=== PATIENT | male | born 1990 | race Caucasian/White ===

== ENCOUNTER 2017-08-10 14:21 | Emergency (ER) | payer BC ==
[2017-08-10 15:33] VITALS: BP 134/86
[2017-08-10] MEDS ORDERED: Lidocaine 1% with EPINEPHrine 1:100,000 20 ML MDV INJECT ONE (15:38)
--- NOTE | 2017-08-10 15:41 | EDM.PDOC ---
ED HPI GENERAL MEDICAL PROBLEM - General Chief Complaint: Laceration Stated Complaint: HIT THE HEAD [id number] Time Seen by Provider: 08/10/17 15:38 Source of Information: Reports: Patient History Limitations: Reports: No Limitations - History of Present Illness INITIAL COMMENTS - FREE TEXT/NARRATIVE: 26 yo male presents with scalp laceration s/p a stud( wall post) falling on his head. deneis LOC. c/o bleeding at time of injury however, bleeding controlled currently. No gauze or dressing present. Onset: Today Duration: Constant Location: Reports: Head Quality: Reports: Ache Severity: Mild Improves with: Reports: None Worsens with: Reports: None Context: Reports: Activity Associated Symptoms: Reports: No Other Symptoms Head Pain Score (Numeric/FACES): 5 - Related Data Allergies Allergy/AdvReac Type Severity Reaction Status Date / Time amoxicillin trihydrate Allergy Rash Verified 08/10/17 15:30 [From Augmentin] cefaclor [From Ceclor] Allergy Diarrhea Verified 08/10/17 15:30 cephalexin Allergy Hives Verified 08/10/17 15:30 codeine Allergy Cannot Verified 08/10/17 15:30 Remember potassium clavulanate Allergy Cannot Verified 08/10/17 15:30 [From Augmentin] Remember Home Meds: Home Meds Albuterol [Ventolin HFA] 2 inh INH ASDIRECTED PRN 08/10/17 [History] Past Medical History - Past Health History Medical/Surgical History: Denies Medical/Surgical History Respiratory History: Reports: Asthma - Infectious Disease History Infectious Disease History: Reports: Chicken Pox - Past Surgical History HEENT Surgical History: Reports: Myringotomy w Tube(s) Social & Family History - Family History Family Medical History: Noncontributory - Tobacco Use Smoking Status *Q: Never Smoker Second Hand Smoke Exposure: No - Caffeine Use Caffeine Use: Reports: Soda - Alcohol Use Days Per Week of Alcohol Use: 1 Number of Drinks Per Day: 3 Total Drinks Per Week: 3 - Recreational Drug Use Recreational Drug Use: No ED ROS GENERAL - Review of Systems Review Of Systems: ROS reveals no pertinent complaints other than HPI. ED EXAM, SKIN/RASH Exam: See Below Exam Limited By: No Limitations General Appearance: Alert, WD/WN, No Apparent Distress Eye Exam: Bilateral Eye: Normal Inspection, PERRL Head: Normocephalic Neck: Normal Inspection, Supple, Non-Tender, Full Range of Motion Respiratory/Chest: No Respiratory Distress, Lungs Clear, Normal Breath Sounds, No Accessory Muscle Use, Chest Non-Tender Cardiovascular: Normal Peripheral Pulses, Regular Rate, Rhythm, No Edema, No Gallop, No JVD, No Murmur, No Rub Neurological: Alert, Oriented, CN II-XII Intact, Normal Cognition, Normal Gait, No Motor/Sensory Deficits Skin: Warm, Dry, Normal Color, No Rash, Wound/Incision (small 1 cm laceration to anterior scalp) Location, Skin: Head ED SKIN PROCEDURES - Laceration/Wound Repair [place] Head Lac/Wound length In cm: 0.5 Appearance: Superficial Anesthetic Type: Local Local Anesthesia - Lidocaine (Xylocaine): 1% with EPI Local Anesthetic Volume: 2cc Skin Prep: Chlorhexidine (Hibiciens) Saline Irrigation (cc's): 30 Closed with: Dermabond Drain Placement: No Sterile Dressing Applied: None Tetanus Status Addressed: Yes Complications: No Course - Vital Signs Last Recorded V/S: Last Vital Signs Temp 98.6 F 08/10/17 15:31 Pulse 107 H 08/10/17 15:31 Resp 18 08/10/17 15:31 BP 134/86 08/10/17 15:31 Pulse Ox 98 08/10/17 15:31 - Orders/Labs/Meds Meds: Medications Discontinued Medications Generic Name Dose Route Start Last Admin Trade Name Lupis PRN Reason Stop Dose Admin Lidocaine/Epinephrine 20 ml 08/10/17 15:38 08/10/17 15:46 Xylocaine 1% With Epinephrine 1:100,000 INJECT 08/10/17 15:39 20 ml ONETIME ONE Administration Departure - Departure Time of Disposition: 16:48 Disposition: Home, Self-Care 01 Condition: Good Clinical Impression: Scalp laceration Qualifiers: Encounter type: initial encounter Qualified Code(s): S01.01XA - Laceration without foreign body of scalp, initial encounter - Discharge Information Instructions: Laceration Care, Adult, [id number], Stitches, [place], or Adhesive Wound Closure, [id number]-Cnei Forms: ED Department Discharge Additional Instructions: Keep wound clean and dry. You do not need to have the dermabond removed, it will dissolve. Monitor for the next 24 hours for any changes in consciousness or symptoms. Return for any worsening symptoms.
== END 2017-08-10 16:59 | disposition home or self-care (01) ==
LOC: DL.ED 14:21
DX: S01.01XA Laceration without foreign body of scalp, initial encounter (principal); J45.909 Unspecified asthma, uncomplicated; Z96.22 Myringotomy tube(s) status; Z88.1 Allergy status to other antibiotic agents; Z88.5 Allergy status to narcotic agent; W19.XXXA Unspecified fall, initial encounter
CPT/HCPCS: 12001; 99283

== ENCOUNTER 2019-04-18 01:40 | Emergency (ER) | payer BC ==
[2019-04-18] MEDS ORDERED: GI Cocktail Oral Solution 30 ML PO ONE (01:52)
--- NOTE | 2019-04-18 01:55 | EDM.PDOC ---
ED HPI GENERAL MEDICAL PROBLEM - General Chief Complaint: Gastrointestinal Problem Stated Complaint: ACID REFLUX [id number] Time Seen by Provider: 04/18/19 01:52 Source of Information: Reports: Patient History Limitations: Reports: No Limitations - History of Present Illness INITIAL COMMENTS - FREE TEXT/NARRATIVE: ate [employer] for dinner. woke up with heartburn which had before but Tums usually helps but not this time, took BP and was high, got worried and came here. Other Treatments [employer] OPER[employer]: po tums - Related Data Allergies Allergy/AdvReac Type Severity Reaction Status Date / Time amoxicillin trihydrate Allergy Rash Verified 04/18/19 01:51 [From Augmentin] cefaclor [From Ceclor] Allergy Diarrhea Verified 04/18/19 01:51 cephalexin Allergy Hives Verified 04/18/19 01:51 codeine Allergy Cannot Verified 04/18/19 01:51 Remember potassium clavulanate Allergy Cannot Verified 04/18/19 01:51 [From Augmentin] Remember Home Meds: Home Meds Albuterol [Ventolin HFA] 2 inh INH ASDIRECTED PRN 08/10/17 [History] Past Medical History - Past Health History Medical/Surgical History: Denies Medical/Surgical History Cardiovascular History: Reports: None Respiratory History: Reports: Asthma Gastrointestinal History: Reports: None Genitourinary History: Reports: None Musculoskeletal History: Reports: None Neurological History: Reports: None Psychiatric History: Reports: None Endocrine/Metabolic History: Reports: None Hematologic History: Reports: None Immunologic History: Reports: None Oncologic (Cancer) History: Reports: None Dermatologic History: Reports: None - Infectious Disease History Infectious Disease History: Reports: Chicken Pox - Past Surgical History Head Surgeries/Procedures: Reports: None HEENT Surgical History: Reports: Myringotomy w Tube(s) Social & Family History - Family History Family Medical History: Noncontributory - Caffeine Use Caffeine Use: Reports: Coffee, Tea ED ROS GENERAL - Review of Systems Review Of Systems: ROS reveals no pertinent complaints other than HPI. ED EXAM, GI/ABD - Physical Exam Exam: See Below Exam Limited By: No Limitations General Appearance: Alert, WD/WN, Mild Distress, Other (discomfort) Ears: Hearing Grossly Normal Throat/Mouth: Normal Voice, No Airway Compromise Head: Atraumatic Neck: Non-Tender, Full Range of Motion Respiratory/Chest: No Respiratory Distress Cardiovascular: Regular Rate, Rhythm GI/Abdominal Exam: Tender, Other (epiG discomfort). No: Distended, Guarding, Rigid, Rebound Neurological: Alert, Oriented, Normal Cognition, Normal Gait, No Motor/Sensory Deficits Psychiatric: Flat Affect Skin Exam: Warm, Dry, Normal Color Lymphatic: No Adenopathy Course - Vital Signs Last Recorded V/S: Last Vital Signs Temp 36.4 C 04/18/19 01:45 Pulse 97 04/18/19 01:45 Resp 20 04/18/19 01:45 BP 156/89 H 04/18/19 01:45 Pulse Ox 100 04/18/19 01:45 - Orders/Labs/Meds Meds: Medications Discontinued Medications Generic Name Dose Route Start Last Admin Trade Name Dickq PRN Reason Stop Dose Admin Al Hydroxide/Mg Hydroxide 30 ml 04/18/19 01:52 04/18/19 01:54 Gi Cocktail PO 04/18/19 01:53 30 ml ONETIME ONE Administration - Re-Assessments/Exams Free Text/Narrative Re-Assessment/Exam: 04/18/19 02:15 re-exam; s/p GI cocktail = much better almost gone now. Departure - Departure Time of Disposition: 02:16 Disposition: Home, Self-Care 01 Condition: Good Clinical Impression: GERD (gastroesophageal reflux disease) - Discharge Information Instructions: Food Choices for Gastroesophageal Reflux Disease, Adult Forms: ED Department Discharge Additional Instructions: 1) avoid [place] foods and pizza next 48 hours 2) have soup and salad and jello 3) recheck as needed 4) don't sleep flat next 2 days
[2019-04-18 02:29] VITALS: BP 151/90
== END 2019-04-18 02:21 | disposition home or self-care (01) ==
LOC: DL.ED 01:40
DX: K21.9 Gastro-esophageal reflux disease without esophagitis (principal); Z88.1 Allergy status to other antibiotic agents; Z88.5 Allergy status to narcotic agent
CPT/HCPCS: 99283; A9270

== ENCOUNTER 2022-01-25 16:02 | Emergency (ER) | payer OTHER ==
[2022-01-25] MEDS ORDERED: Bacitracin Oint 1 GM U/D Packet TOP ONE (16:15)
[2022-01-25] MEDS ORDERED: Lidocaine 1% with EPINEPHrine 1:100,000 20 ML MDV INJECT ONE (16:15)
[2022-01-25 16:20] VITALS: BP 141/76; PULSE 97
== END 2022-01-25 17:10 | disposition home or self-care (01) ==
LOC: DL.ED 16:02
DX: S51.012A Laceration without foreign body of left elbow, initial encounter (principal); Z88.0 Allergy status to penicillin; Z88.5 Allergy status to narcotic agent; Z88.1 Allergy status to other antibiotic agents; W08.XXXA Fall from other furniture, initial encounter; W26.8XXA Contact with other sharp object(s), not elsewhere classified, initial encounter
CPT/HCPCS: 12002; 99282; 99282-25

== ENCOUNTER 2024-10-15 15:01 | Emergency (ER) | payer BC, OTHER ==
[2024-10-15] MEDS: Lidocaine 1% 5 ML VIAL INJECT ONE (15:54)
[2024-10-15 16:06] VITALS: BP 137/80; PULSE 100
== END 2024-10-15 15:35 | disposition home or self-care (01) ==
LOC: DL.ED 15:01
DX: S61.411A Laceration without foreign body of right hand, initial encounter (principal); J45.909 Unspecified asthma, uncomplicated; Z79.899 Other long term (current) drug therapy; Z88.0 Allergy status to penicillin; Z88.1 Allergy status to other antibiotic agents; Z88.5 Allergy status to narcotic agent; Z88.8 Allergy status to other drugs, medicaments and biological substances; W25.XXXA Contact with sharp glass, initial encounter
CPT/HCPCS: 12001; 99282; J3490